=== PATIENT | female | born 1955 | race Asian ===

== ENCOUNTER 2019-01-14 08:36 | Day surgery (SDC) | payer OTHER ==
[2019-01-14] MEDS ORDERED: FENTAnyl 50 MCG/ML VIAL (11:24)
[2019-01-14] MEDS ORDERED: MIDAZOLAM 1 MG/ML 2 ML INJ ×2 (11:25)
== END 2019-01-14 12:31 | disposition home or self-care (01) ==
LOC: GIL 08:36
DX: Z12.11 Encounter for screening for malignant neoplasm of colon (principal); D12.5 Benign neoplasm of sigmoid colon
CPT/HCPCS: 45380; 88305